=== PATIENT | male | born 1985 | race Caucasian/White ===

== ENCOUNTER 2021-07-09 09:02 | Outpatient (CLI) | payer BC, SELFPAY ==
[2021-07-09 19:25] LABS: Basophils Absolute Auto 0.1 K/mm3 (0.0-0.1); Basophils Percent Auto 0.6 % (0.2-1.2); Eosinophils Absolute Auto 0.3 K/mm3 (0-0.3); Eosinophils Percent Auto 3.2 % (0-4.4); Hematocrit 48.3 % (42.0-52.0); Hemoglobin 16.1 g/dL (14.0-18.0); Immature Granulocyte Absolute 0.05 K/mm3 (0.00-0.031); Immature Granulocyte Percent A 0.5 % (0-0.5); Lymphocytes Absolute Auto 3.22 K/mm3 (0.9-3.2); Lymphocytes Percent Auto 34.5 % (18.3-44.2); Mean Corpuscular HGB Conc 33.3 g/dl (32-36); Mean Corpuscular Hemoglobin 30.5 pg (26-34); Mean Corpuscular Volume 91.5 fl (80-100); Mean Platelet Volume 12.3 fl (7.4-10.4); Monocytes Absolute Auto 0.8 K/mm3 (0.1-0.6); Neutrophils Percent Auto 53.2 % (45.5-73.1); Platelet Count Result 234 k/mm3 (150-375); Red Blood Count 5.28 M/mm3 (4.6-6.20); Red Cell Distribution Width 12.5 % (11.5-14.5); White Blood Count 9.3 K/mm3 (4.5-10.0)
[2021-07-09 21:05] LABS: Alanine Aminotransferase 52 U/L (4-50); Albumin Level 5.2 g/dL (3.5-5.1); Alkaline Phosphatase 83 U/L (38-126); Anion Gap 11 mmol/L (8-16); Aspartate Amino Transferase 37 U/L (17-59); Bilirubin,Total 0.5 mg/dL (0.2-1.3); Blood Urea Nitrogen 10 mg/dL (9-20); Carbon Dioxide 25 mmol/L (22-30); Chloride 102 mmol/L (98-107); Cholesterol 251 mg/dL (0-200); Estimated Glomerular Filt Rate > 60; Glucose 95 mg/dL (65-110); HDL Direct 37 mg/dL; Potassium 4.5 mmol/L (3.4-5.0); Sodium 138 mmol/L (137-145); Triglycerides 293 mg/dL (<150)
[2021-07-09 21:15] LABS: LDL Cholesterol Direct 178 mg/dL
[2021-07-09 21:16] LABS: Hemoglobin A1C 5.4 % (<5.7)
[2021-07-17 00:55] LABS: Testosterone Free 45.2 pg/mL (35.0-155.0); Testosterone Total 261 ng/dL (250-1100)
== END 2021-07-09 09:03 | disposition home or self-care (01) ==
LOC: ANHBWCLAB 09:07
PROVIDERS: PCP Family Medicine; Visit Provider Family Medicine
DX: Z00.00 Encounter for general adult medical examination without abnormal findings (principal); N52.9 Male erectile dysfunction, unspecified
CPT/HCPCS: 36415; 80053; 80061; 83036; 84402; 84403; 85025

== ENCOUNTER 2021-08-11 11:15 | Outpatient (CLI) | payer BC, SELFPAY ==
[2021-08-11 19:15] LABS: Vitamin D 25 Hydroxy 13.2 ng/mL
[2021-08-13 11:45] LABS: Sex Hormone Binding Globulin 12 nmol/L (10-50)
[2021-08-14 07:38] LABS: Ionized Calcium 5.3 mg/dL (4.8-5.6)
[2021-08-14 16:10] LABS: FSH 4.1 mIU/mL (1.6-8.0); LH 3.2 mIU/mL (1.5-9.3); Prolactin 13.1 ng/mL (***)
[2021-08-14 21:17] LABS: Testosterone Free 49.9 pg/mL (35.0-155.0); Testosterone Total 203 ng/dL (250-1100)
[2021-08-14 23:56] LABS: Vitamin D 1,25 (OH)2 Total 39 pg/mL (18-72); Vitamin D2 1,25 (OH)2 <8 pg/mL; Vitamin D3 1,25 (OH)2 39 pg/mL
== END 2021-08-11 11:16 | disposition home or self-care (01) ==
LOC: ANHBWCLAB 11:16
PROVIDERS: PCP Family Medicine; Visit Provider Family Medicine
DX: E83.52 Hypercalcemia (principal); N52.9 Male erectile dysfunction, unspecified; R79.89 Other specified abnormal findings of blood chemistry
CPT/HCPCS: 36415; 82306; 82330; 82652; 83001; 83002; 83519; 84146; 84270; 84402; 84403

== ENCOUNTER 2021-08-28 08:06 | Outpatient (CLI) | payer BC, SELFPAY ==
[2021-08-28 20:33] LABS: Transferrin 236 mg/dL (206-381)
[2021-08-28 20:44] LABS: T4 Thyroxine 8.92 ug/dL (5.53-11.0)
[2021-08-28 20:58] LABS: Prostate Specific Antigen 0.9 ng/mL (< OR = 4.0)
[2021-09-01 14:16] LABS: DHEA-Sulfate 105 mcg/dL (106-464)
[2021-09-02 13:01] LABS: Testosterone Total 259 ng/dL (250-1100)
== END 2021-08-28 08:07 | disposition home or self-care (01) ==
LOC: ANHBWCLAB 08:08
PROVIDERS: PCP Family Medicine; Visit Provider Family Medicine
DX: R79.89 Other specified abnormal findings of blood chemistry (principal); E29.1 Testicular hypofunction
CPT/HCPCS: 36415; 82533; 82627; 84153; 84402; 84403; 84436; 84466; G0103

== ENCOUNTER 2025-07-16 08:59 | Outpatient (CLI) | payer BC, SELFPAY ==
--- NOTE | ~2025-07-16 | XR_ITS ---
XR lumbar spine 2-3V Indication: M54.50 - Low back pain, unspecified Comparison: None Findings: The vertebral heights are intact. No fracture or subluxation. The disc heights are intact. Soft tissues unremarkable Impression: No acute abnormality. Reviewed, dictated and finalized at location P. Impression: No acute abnormality.
[2025-07-16 19:21] LABS: Hematocrit 41.4 % (42.0-52.0); Hemoglobin 13.2 g/dL (14.0-18.0); Mean Corpuscular HGB Conc 31.9 g/dl (32-36); Mean Corpuscular Hemoglobin 29.6 pg (26-34); Mean Corpuscular Volume 92.8 fl (80-100); Platelet Count Result 169 k/mm3 (150-375); Red Blood Count 4.46 M/mm3 (4.6-6.20); White Blood Count 7.6 K/mm3 (4.5-10.0)
[2025-07-16 19:44] LABS: Alanine Aminotransferase 18 U/L (6-50); Albumin Level 4.5 g/dL (3.5-5.1); Alkaline Phosphatase 55 U/L (38-126); Anion Gap 9 mmol/L (4-12); Aspartate Amino Transferase 59 U/L (17-59); Bilirubin,Total 0.4 mg/dL (0.2-1.3); Blood Urea Nitrogen 11 mg/dL (9-20); Calcium 9.3 mg/dL (8.4-10.2); Carbon Dioxide 25 mmol/L (22-30); Chloride 106 mmol/L (98-107); Cholesterol 189 mg/dL (0-200); Estimated Glomerular Filt Rate > 60; Glucose 90 mg/dL (65-110); HDL Direct 32 mg/dL; Potassium 4.4 mmol/L (3.4-5.0); Sodium 140 mmol/L (137-145); Total Protein 7.8 g/dL (6.3-8.2); Triglycerides 99 mg/dL (<150)
[2025-07-16 20:27] LABS: Thyroid Stimulating Hormone 1.210 uIU/mL (0.465-4.680)
[2025-07-19 13:09] LABS: Free Testosterone (Direct) 6.0 pg/mL (8.7-25.1)
== END 2025-07-16 09:00 | disposition home or self-care (01) ==
PROVIDERS: PCP Nurse Practitioner Adult Health; Visit Provider Nurse Practitioner Adult Health
DX: Z00.00 Encounter for general adult medical examination without abnormal findings (principal); E29.1 Testicular hypofunction; M54.50 Low back pain, unspecified
CPT/HCPCS: 36415; 72100; 80053; 80061; 84402; 84403; 84443; 85027

== ENCOUNTER 2025-07-18 07:40 | Outpatient (CLI) | payer BC, SELFPAY ==
[2025-07-18 18:31] LABS: Iron 91 ug/dL (49-181)
[2025-07-18 18:40] LABS: Percent Iron Saturation 33 % (20-50)
[2025-07-18 20:24] LABS: Ferritin 439.00 ng/mL (17.9-464)
== END 2025-07-18 07:41 | disposition home or self-care (01) ==
LOC: ANHBWCLAB 07:41
PROVIDERS: PCP Nurse Practitioner Adult Health; Visit Provider Nurse Practitioner Adult Health
DX: D64.9 Anemia, unspecified (principal)
CPT/HCPCS: 36415; 82728; 83540; 83550

== ENCOUNTER 2025-07-18 09:25 | Outpatient (NON) | payer BC, SELFPAY ==
[2025-07-18 09:59] LABS: IFOB Positive Control Positive; Immunochemical Fecal Occult Bl Negative (N)
== END 2025-07-18 09:26 | disposition home or self-care (01) ==
LOC: ANHLAB 09:25
PROVIDERS: PCP Nurse Practitioner Adult Health; Visit Provider Nurse Practitioner Adult Health
DX: D64.9 Anemia, unspecified (principal)
CPT/HCPCS: 82274